=== PATIENT | female | born 2000 | race Caucasian/White ===

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

== ENCOUNTER 2020-06-11 10:42 | Outpatient (CLI) | payer MEDICAID, SELFPAY ==
[2020-06-13 21:31] LABS: SARS-CoV-2 RNA Undetected (Undetected); SARS-CoV-2 Specimen Source Nasopharynx
== END 2020-06-11 11:02 ==
PROVIDERS: PCP Pediatrics; Visit Provider Nurse Practitioner Pediatrics
DX: Z11.59 Encounter for screening for other viral diseases (principal)
CPT/HCPCS: U0003

== ENCOUNTER 2020-06-29 09:01 | Outpatient (CLI) | payer SELFPAY ==
[2020-06-29 10:36] LABS: ALT 36 U/L (14-59); AST 15 U/L (15-37); Albumin 3.9 g/dL (3.4-5.0); Alkaline Phosphatase 59 U/L (46-116); Bilirubin, Direct 0.11 mg/dL (0.00-0.20); Bilirubin, Total 0.6 mg/dL (0.2-1.0); Total Protein 7.7 g/dL (6.4-8.2)
[2020-07-02 09:09] LABS: Hepatitis B Surface Ab Positive (See Note)
[2020-07-02 09:17] LABS: Hepatitis B Surface Ag Negative (Negative)
[2020-07-02 10:03] LABS: HIV-1/2 Ag & Ab Screen Negative (Negative)
[2020-07-02 10:13] LABS: Hepatitis C Ab w Rflx HCV PCR Negative (Negative)
== END 2020-06-29 09:21 ==
PROVIDERS: PCP Pediatrics; Visit Provider Dentist General Practice
DX: Z11.4 Encounter for screening for human immunodeficiency virus [HIV] (principal); Z11.59 Encounter for screening for other viral diseases; Z01.84 Encounter for antibody response examination
CPT/HCPCS: 36415; 80076; 86706; 86803; 87340; 87389

== ENCOUNTER 2020-10-10 20:34 | Emergency (ER) | payer MEDICAID, SELFPAY ==
[2020-10-10 20:41] VITALS: BP 146/94; PULSE 107; RESP 20; TEMP 37.1; O2SAT 100
--- NOTE | 2020-10-10 20:45 | ED.GENADUL_ITS ---
Discharge Plan Disposition Patient Disposition: HOME Condition: Stable Discharge Details Clinical Impression: Constipation, Leukocytosis Primary Care Provider: Maria Alejandra Vergara V ED Provider: Silvia Mello Home Meds and New Rx's Prescriptions: No Action norethindrone-e.estradiol-iron [Loestrin Fe 1.5/30 (28-Day)] 1.5 mg-30 mcg (21)/75 mg (7) tablet 1 tab PO DAILY Qty: 84 RF: 4 dexmethylphenidate [Focalin XR] 25 mg capsule,ER biphasic 50-50 25 mg PO DAILY RF: 0 Discharge Instructions Instructions: Constipation (ED), Leukocytosis (ED) Additional Instructions: Take the MiraLAX as needed at home as discussed. Today the CT shows moderate amount of stool retention. There is no evidence for kidney stone or urinary tract infection. If your pain gets worse or you feel worse at all please return to the ED. Her white blood cell count was elevated also as discussed. Sometimes this can be a normal variant but also could be an indication of infection or inflammation. Follow up with primary care provider in 3-5 days. Return to ED sooner if any worsening or concerns. Increase oral fluids. Please take Tylenol or Ibuprofen with food every 4-6 hours as needed for pain and swelling. Medical Decision Making 20-year-old female presents to the ER with chief complaint of left flank pain. BM this morning and is gotten worse throughout the day radiates around her left lower quadrant. Associated with nausea, no vomiting no fever or chills. She does report she woke up this morning with aches. She denies any dysuria. No past surgical history, only past medical history is ADHD. She does take oral control pills. She did take ibuprofen this a.m. At this time labs show a white blood cell count of 18.53, absolute neutrophils, potassium 3.1, anion gap 8.9, BUN is 6, GFR greater than 60, urinalysis shows trace blood, no leukocytes no nitrites. Urine culture is not indicated at this time. Ordered potassium 40 mEq p.o., patient did get 30 mg of Toradol IV. CT abdomen pelvis without contrast: IMPRESSION: 1. The superior aspect of the liver, stomach, and spleen is incompletely imaged on this examination. Abnormalities in these regions cannot be excluded. 2. No renal or ureteral calculi identified. Evaluation for pyelonephritis is limited secondary to the lack of IV contrast. 3. Moderate amount of stool in the colon which can be seen with constipation. 4. Rectal wall prominence which should be correlated with any concern for proctitis. Other findings/details as above. Patient is still complaining of some left lower lumbar pain she describes it as waxing and waning with sharp stabbing pains. After discussing the CT results she does state that she has had problems with constipation her entire life. She does take MiraLAX at home, she has not taken any recently. She states that she did have a small bowel movement today. She denies any sore throat or any upper respiratory type symptoms. She denies any vaginal discharge or itching. At this time I am not sure what is causing her elevated white blood cell count. She has no signs or symptoms of infectious etiology. Discussed different modes for constipation including enemas, mag citrate. Patient opted to take the MiraLAX at home. I did discuss strict return instructions, patient verbalized understanding. We will place patient on care management list to follow-up with PCP for repeat CBC in the next couple days if possible. Differential diagnosis includes but not limited to kidney stone, pyelonephritis, UTI, diverticulitis, bowel obstruction, lumbago, less likely differential is porphyria HPI General Mode of arrival: ambulatory . Date/Time Provider Initiated Documentation: 10/10/20 20:34 . Limitations to Documentation: no limitations . Information obtained by: patient . HPI Narrative: 20-year-old female presents to the ER with chief complaint of left flank pain. BM this morning and is gotten worse throughout the day radiates around her left lower quadrant. Associated with nausea, no vomiting no fever or chills. She does report she woke up this morning with aches. She denies any dysuria. No past surgical history, only past medical history is ADHD. She does take oral control pills. She did take ibuprofen this a.m. Related Data Home Medications Medication Instructions Recorded Confirmed norethindrone 1.5 mg-ethinyl 1 tab PO DAILY #84 tab 08/31/20 10/10/20 estradiol 30 mcg(21)/iron 75 mg(7) tablet dexmethylphenidate [Focalin XR] 25 mg PO DAILY 10/10/20 10/10/20 Previous Rx's Medication Instructions Recorded norethindrone 1.5 mg-ethinyl 1 tab PO DAILY #84 tab 08/31/20 estradiol 30 mcg(21)/iron 75 mg(7) tablet Allergies Allergy/AdvReac Type Severity Reaction Status Date / Time amoxicillin Allergy Severe hives Verified 10/10/20 20:47 ondansetron [From Zofran] Allergy Intermediate Swelling/Ed Unverified 10/10/20 21:18 johnathon Review of Systems Narrative: Constitutional: Negative for weight loss, alert and oriented, well groomed, normal body habitus, appears comfortable. HEENT: Denies trauma, headaches, blurry vision, nasal discharge, sore throat, trouble swallowing. Chest: Denies chest pain, palpitations, irregular rhythm, hypertension. Respiratory: Denies Shortness of breath, cough, hemoptysis. GI: Denies vomiting, diarrhea, constipation. Positive nausea left lower quadrant abdominal pain. : Denies dysuria, hematuria, rectal bleeding. Positive left flank pain. Neuro: Denies dizziness, blurry vision, weakness, syncope, headache or facial numbness. Hematologic: Denies easy bruising, intolerance to heat or cold, hair loss. [facility] Social History Smoking/Tobacco Use Status: Never Smoking risk assessment performed?: Yes Alcohol Intake: current Alcohol Intake frequency: holidays/special occasions only Drug use: Never Substance use type: does not use Do you feel safe at home: Yes Exam Narrative Exam Narrative: Constitutional: Alert and oriented x3. Appears stated age. Normal body habitus. Head: Normocephalic, no trauma. Eyes: Pupils PERRLA, Red reflex noted, EOM's intact. Eyelids symmetrical without lesions, discharge, or swelling. ENT: Bilateral TM's WNL, External ear normal to inspection, no mastoid TTP, s welling, or erythema, Nasal turbinates WNL, no nasal discharge. Normal dentition, Posterior pharynx WNL, no exudate. Chest: RRR, Normal S1, S2, distal pulses intact. Resp: Lungs clear to auscultation bilaterally, no wheezes, rales, or rhonchi. Abdomen: Soft, nondistended. Genitourinary: Left CVA tenderness with palpation. Musculoskeletal: Normal gait, 5/5 strength to all four extremities. Skin: No suspicious rashes or lesions. Capillary refill less than 2 sec. Neurologic: Cranial nerves II-XII intact. Alert and oriented x 3. DTR's intact. Hematologic/Lymphatic: No ecchymosis, no lymphadenopathy.
[2020-10-10 20:47] LABS: Bilirubin Negative (Negative); Blood Trace-intact (Negative); Clarity Clear (Clear); Glucose Negative (Negative); Ketones Negative (Negative); Leukocyte Esterase Negative (Negative); Nitrite Negative (Negative); Specific Gravity 1.015 (1.005-1.025); Urobilinogen 0.2 EU/dL (Up TO 0.2)
[2020-10-10 20:54] LABS: RBC 0-2 HPF (0-2)
[2020-10-10 20:55] LABS: Bacteria Negative HPF (Negative); C & S Indicated? No; Casts Negative LPF (Negative); Crystals Negative HPF (Negative); Epithelial Cells Few HPF (Negative); Mucus Negative (Negative)
[2020-10-10] MEDS: Ketorolac 30 MG/ML VIAL IVP (21:08)
[2020-10-10] MEDS: Normal Saline 1,000 ML 1000 ML IV (21:09)
[2020-10-10 21:17] LABS: Abs Immature Grans 0.09 10^3/uL (0.0-0.06); Absolute Eosinophil Count 0.11 10^3/uL (0.0-0.7); Absolute Lymphocyte Count 2.96 10^3/uL (1.2-3.4); Absolute Monocyte Count 0.89 10^3/uL (0.1-0.8); Basophils % 0.3; Eosinophils % 0.6; HCT 39.7 % (36.0-46.0); HGB 13.2 g/dL (11.2-15.7); Immature Grans % 0.5; MCH 30.1 pg (27.0-33.0); MCHC 33.2 % (32.0-36.0); MCV 90.4 fL (80-95); MPV 9.8 fL (8.0-11.0); Monocytes % 4.8; Neutrophils % 77.8; Nucleated RBC 0 %; Platelet Count 278 10^3/uL (130-400); RBC 4.39 10^6/uL (3.93-5.22); RDW 12.2 % (11.7-14.6); RDW-SD 40.3 fL; WBC 18.53 10^3/uL (4.4-10.8)
--- NOTE | 2020-10-10 21:17 | DI.CT_ITS ---
EXAM: CT RENAL COLIC WO CLINICAL HISTORY: Left flank pain, nausea. TECHNIQUE: Imaging Protocol: Axial computed tomography images with coronal and sagittal reformatted images were created and reviewed. COMPARISON: No exams were available for comparison FINDINGS: ABDOMEN: Lung Bases: Normal where visualized. Liver: The visualized liver is unremarkable. No measurable mass. Gallbladder and biliary tract: No radiodense calculus or biliary ductal dilation. Pancreas: Normal density, no abnormal calcifications or inflammatory process. Spleen: The visualized portions of the spleen are unremarkable. Kidneys: Normal size, contour and axis.No radiodense stones or obstructive uropathy. No masses seen. Adrenal glands: No mass is seen. Lymph nodes: Within normal limits. Abdominal Aorta: Abdominal portion non-dilated. PELVIS: Bladder:Symmetric distention, no gross wall thickening. Bowel: No obstruction or bowel wall thickening. Appendix is unremarkable. There is a moderate amount of stool in the colon. Peritoneal cavity: No ascites, collection or mesenteric inflammatory response Reproductive organs: Within normal limits. Bones: Within normal limits. Soft Tissues: Within normal limits. IMPRESSION: No evidence of nephrolithiasis or hydronephrosis. No acute abdominal or pelvic process. RADIATION DOSE DELIVERED: 652.22mGy.cm Total DLP DATA REPOSITORY: All CT scans at this facility are submitted to the National Radiology Data Registry (NRDR) Dose Index Registry (DIR) with the [employer] (A[employer]). RADIATION OPTIMIZATION: All CT scans at this facility use at least one of these dose optimization te chniques: automated exposure control; mA and/or kV adjustment per patient size (includes targeted exa ms where dose is matched to clinical indication); or iterative reconstruction.
[2020-10-10 21:23] LABS: Absolute Basophil Count 0.06 10^3/uL (0.0-0.2); Absolute Neutrophil Count 14.42 10^3/uL (1.2-6.7)
[2020-10-10 21:24] VITALS: BP 136/89; PULSE 92; RESP 16; O2SAT 100
[2020-10-10 21:31] LABS: ALT 16 U/L (14-59); AST 13 U/L (15-37); Albumin 4.1 g/dL (3.4-5.0); Alkaline Phosphatase 51 U/L (46-116); Anion Gap 8.9 mmol/L (3-11); BUN 6 mg/dL (7-18); Bilirubin, Total 0.5 mg/dL (0.2-1.0); CO2 26.1 mmol/L (21.0-32.0); CREATININE 0.77 mg/dL (0.55-1.02); Calcium 8.9 mg/dL (8.5-10.1); Chloride 103 mmol/L (98-107); Glucose 91 mg/dL (74-106); Potassium 3.1 mmol/L (3.5-5.1); Sodium 138 mmol/L (136-145); Total Protein 7.8 g/dL (6.4-8.2)
--- NOTE | 2020-10-10 22:03 | DI.VRAD_ITS ---
PROCEDURE INFORMATION: Exam: CT Abdomen And Pelvis Without Contrast Exam date and time: 10/10/2020 9:18 PM Age: 20 years old Clinical indication: Abdominal pain; Flank; Left TECHNIQUE: Imaging protocol: Computed tomography of the abdomen and pelvis without contrast. Radiation optimization: All CT scans at this facility use at least one of these dose optimization techniques: automated exposure control; mA and/or kV adjustment per patient size (includes targeted exams where dose is matched to clinical indication); or iterative reconstruction. COMPARISON: No relevant prior studies available. FINDINGS: Limitations: The superior aspect of the liver, stomach, and spleen is incompletely imaged on this examination. Liver: The imaged portions of the liver are homogeneous. Gallbladder and bile ducts: Contracted gallbladder. No calcified gallstones identified. Pancreas: Pancreas grossly homogeneous. Spleen: The imaged portions of the spleen are homogeneous. Adrenal glands: Normal appearance to the adrenal glands. Kidneys and ureters: No hydronephrosis. No renal or ureteral calculi seen. Stomach and bowel: Heterogeneous contents to the stomach, favored to be related to ingested products. No bowel obstruction. Moderate amount of stool in the colon which can be seen with constipation. There is rectal wall prominence which should be correlated with any concern for proctitis. Appendix: Normal appendix. Intraperitoneal space: No free air. Vasculature: No abdominal aortic aneurysm. Lymph nodes: No pathologic lymph node enlargement. Urinary bladder: Urinary bladder within normal limits. Reproductive: The uterus is identified. No large adnexal masses seen. Bones/joints: Bony structures are age-appropriate. Soft tissues: Unremarkable. IMPRESSION: 1. The superior aspect of the liver, stomach, and spleen is incompletely imaged on this examination. Abnormalities in these regions cannot be excluded. 2. No renal or ureteral calculi identified. Evaluation for pyelonephritis is limited secondary to the lack of IV contrast. 3. Moderate amount of stool in the colon which can be seen with constipation. 4. Rectal wall prominence which should be correlated with any concern for proctitis. Other findings/details as above. Dictated and Authenticated by: Linn Garcia MD. Ordering:MASON Vega MD
[2020-10-10] MEDS: Potassium Chloride 20 MEQ TABCR 40 MEQ PO (22:34)
[2020-10-10 23:05] VITALS: BP 113/70; PULSE 76; RESP 16; O2SAT 99
== END 2020-10-10 23:02 | disposition home or self-care (01) ==
PROVIDERS: Emergency Provider Registered Nurse Emergency; PCP Pediatrics
DX: D72.829 Elevated white blood cell count, unspecified (principal); K59.00 Constipation, unspecified; E87.6 Hypokalemia
CPT/HCPCS: 36415; 80053; 81025; 96361; 96374; 96375; 99284; 74176; 81003; 81015; 85025; J1885

== ENCOUNTER 2020-11-12 15:36 | Outpatient (CLI) | payer MEDICAID, SELFPAY ==
--- NOTE | 2020-11-12 15:00 | DI.RAD_ITS ---
EXAM: XR KNEE LT 4V AP,LAT,ISAIAH,PAT CLINICAL HISTORY: L knee pain. TECHNIQUE: 2D digital imaging was performed. COMPARISON: No exams were available for comparison FINDINGS: There is no evidence of fracture nor dislocation. There appears to be a small amount of increased rosales int fluid. No joint space narrowing. No degenerative changes. No osteochondral defects. Bone dens ity normal. IMPRESSION: No fracture evident. DATA REPOSITORY: RADIATION DOSE DELIVERED:
== END 2020-11-12 15:56 ==
PROVIDERS: PCP Pediatrics; Referring Provider Pediatrics; Visit Provider Physician Assistant
DX: M25.562 Pain in left knee (principal)
CPT/HCPCS: 73564

== ENCOUNTER 2020-12-07 01:55 | Outpatient (CLI) | payer MEDICAID, SELFPAY ==
[2020-12-09 14:08] LABS: COVID-19 RT-PCR UVMMC Result Negative (Negative)
== END 2020-12-07 01:56 | disposition home or self-care (01) ==
LOC: LBO 01:55
PROVIDERS: PCP Pediatrics; Visit Provider Student in an Organized Health Care Education/Training Program
DX: Z20.822 Contact with and (suspected) exposure to COVID-19 (principal); Z01.818 Encounter for other preprocedural examination
CPT/HCPCS: U0003

== ENCOUNTER 2020-12-12 07:26 | Day surgery (SDC) | payer MEDICAID, SELFPAY ==
[2020-12-12] VITALS (11 sets, daily range): BP systolic 91–121; BP diastolic 38–84; PULSE 60–86; RESP 13–18; TEMP 36–36.9; O2SAT 97–100
[2020-12-12] MEDS: Lactated Ringers 1,000 ML 80 ML IV (08:05)
--- NOTE | 2020-12-12 09:49 | PDOC.DSDIS_ITS ---
Documented by User: MARIAN Herrera 12/12/20 09:55 Discharge Plan Disposition Patient Disposition: HOME Condition: Good Discharge Details Reason For Visit: Left knee arthroscopy Attending Provider: Srinivas Kaba Primary Care Provider: Maria Alejandra Vergara V Home Meds and New Rx's Prescriptions: New acetaminophen 500 mg capsule 500 mg PO Q4H PRN (Reason: pain) Qty: 30 RF: 0 hydrocodone-acetaminophen 5-325 mg tablet 1 tab PO Q6H PRN (Reason: pain) Qty: 6 RF: 0 ibuprofen 600 mg tablet 600 mg PO TID PRN (Reason: pain) Qty: 30 RF: 0 Continued norethindrone-e.estradiol-iron [Loestrin Fe 1.5/30 (28-Day)] 1.5 mg-30 mcg (21)/75 mg (7) tablet 1 tab PO DAILY Qty: 84 RF: 4 dexmethylphenidate 30 mg capsule,ER biphasic 50-50 30 mg PO DAILY MDD 30mg Qty: 30 RF: 0 albuterol sulfate [ProAir HFA] 90 mcg/actuation HFA aerosol inhaler 2 puff IH QID PRN (Reason: shortness of breath or wheezing) Qty: 8.5 RF: 2 (DME) Aerochamber MV Spacer See Rx Instructions .ROUTE .MEDSUPPLY Qty: 1 RF: 0 epinephrine [EpiPen 2-Triston] 0.3 MG/0.3 ML auto-injector 0.3 mg IM ONCE Qty: 2 RF: 1 (DME) Space Chamber Plus 1 EACH spacer 1 ea Miscellaneous Q4H PRN Qty: 1 RF: 0 Discharge Instructions Stand Alone Forms: [facility] Knee Arthroscopy Referrals: Srinivas Kaba MD [ [facility] STAFF PHYSICIAN] - Equipment/Supplies: Partial Weight Bearing Crutches Activity:: Activity as Tolerated Remove Dressings/Wound Care:: 72 hours Shower/Bathe:: 72 hours Diet:: As Tolerated Discharge Orders Discharge Orders: Discharge Order (Routine); Ordered 12/12/20 Ordered By: Srinivas Kaba DS: Diagnosis Discharge Diagnosis (1) Plica syndrome, left knee: Status: Acute Documented by User: Srinivas Kaba MD 12/12/20 11:15 Discharge Plan Disposition Patient Disposition: HOME Condition: Good Discharge Details Reason For Visit: Left knee arthroscopy Attending Provider: Srinivas Kaba Primary Care Provider: Maria Alejandra Vergara V Home Meds and New Rx's Prescriptions: New acetaminophen 500 mg capsule 500 mg PO Q4H PRN (Reason: pain) Qty: 30 RF: 0 hydrocodone-acetaminophen 5-325 mg tablet 1 tab PO Q6H PRN (Reason: pain) Qty: 6 RF: 0 ibuprofen 600 mg tablet 600 mg PO TID PRN (Reason: pain) Qty: 30 RF: 0 Continued norethindrone-e.estradiol-iron [Loestrin Fe 1.5/30 (28-Day)] 1.5 mg-30 mcg (21)/75 mg (7) tablet 1 tab PO DAILY Qty: 84 RF: 4 dexmethylphenidate 30 mg capsule,ER biphasic 50-50 30 mg PO DAILY MDD 30mg Qty: 30 RF: 0 albuterol sulfate [ProAir HFA] 90 mcg/actuation HFA aerosol inhaler 2 puff IH QID PRN (Reason: shortness of breath or wheezing) Qty: 8.5 RF: 2 (DME) Aerochamber MV Spacer See Rx Instructions .ROUTE .MEDSUPPLY Qty: 1 RF: 0 epinephrine [EpiPen 2-Triston] 0.3 MG/0.3 ML auto-injector 0.3 mg IM ONCE Qty: 2 RF: 1 (DME) Space Chamber Plus 1 EACH spacer 1 ea Miscellaneous Q4H PRN Qty: 1 RF: 0 Discharge Instructions Stand Alone Forms: [facility] Knee Arthroscopy Referrals: Srinivas Kaba MD [ [facility] STAFF PHYSICIAN] - Equipment/Supplies: Partial Weight Bearing Crutches Activity:: Activity as Tolerated Remove Dressings/Wound Care:: 72 hours Shower/Bathe:: 72 hours Diet:: As Tolerated Discharge Orders Discharge Orders: Discharge Order (Routine); Ordered 12/12/20 Ordered By: Srinivas Kaba
[2020-12-12] MEDS: ceFAZolin 2 GM/50 ML BAG IVPB (10:14)
[2020-12-12] MEDS: Bupivacaine 0.5% Pres-Free 30 ML VIAL (10:37)
--- NOTE | 2020-12-12 11:10 | ROE_ITS ---
Date of service: 12/12/20 Time of Service: 11:10 Operative Note Operative Note DATE OF PROCEDURE: 12/12/20 PRE-OP DIAGNOSIS: Left Knee Plica Syndrome POST-OP DIAGNOSIS: same PROCEDURE: Left Knee Arthroscopic Plica Excision SURGEON: Srinivas Kaba ANESTHESIA TYPE: General LMA/ETT Refer to Anesthesia Record ESTIMATED BLOOD LOSS: 0 PATHOLOGY: none sent COMPLICATIONS: None Patient was transported to: PACU Patient's condition: stable Indications: I have seen Tran in clinic for symptoms of a medial plica. This was confirmed based on MRI and exam findings. Nonoperative measures were exhausted but disability and pain persisted. I discussed knee arthroscopy with plica excision with the patient. I reviewed the risks of the procedure to incl ude, but not limited to, bleeding, infection, pain, stiffness, damage to nerves or vessels, recurrence, blood clot. Despite these risks, the patient elected to proceed. Findings: A diagnostic arthroscopy was performed with the following findings: Suprapatellar Pouch: No significant inflammation, No loose bodies Medial Compartment: Tight plica abrading the medial femur in flexion, no meniscal tear, Intact meniscal root, No significant chondromalacia or signs of arthritis, No loose bodies Notch: ACL and PCL were intact Lateral Compartment: No meniscal tear, Intact meniscal root, No significant chondromalacia or signs of arthritis, No loose bodies Patellofemoral Compartment: No significant chondromalacia, No apparent patellar maltracking Procedure Description: Tran was greeted in the preoperative holding area where the correct side was identified and marked. The consent was reviewed with the patient and signed. The history and physical was updated. All questions were answered. Tran was taken back to the operating room. The patient was placed into the supine position on the operating room table. All bony prominences were well padded. Prophylactic antibiotics in the form of Cefazolin were administered. The left leg was then prepped with Chloraprep and draped in a standard fashion with stockinette and extremity drape. A timeout to confirm correct identity, side and site, procedure, allergies, anesthesia, and medical concerns was performed. The leg was placed into a pneumatic leg bolivar, [id number]. A standard lateral portal was made at the lateral border of the patella tendon in line with the inferior pole of the patella, soft spot. The skin and deep tissue was incised sharply and the blunt trochar was inserted atraumatically. A diagnostic arthroscopy was performed and the findings are listed above. The suprapatellar pouch had no significant inflammatory change. The patellofemoral articulation showed no articular damage as well as good tracking. The lateral gutter had no loose bodies and the medial gutter had no loose bodies. There was a tight plica of the medial knee from the medial knee toward the fat pad. This was think and taut, abrading the medial femur through flexion. Then, the knee was brought into some valgus stress in extension to open the medial compartment. A medial portal was made, localized by a spinal needle. The portal was created with an #11 blade through skin and capsule under direct visualization avoiding any meniscal injury. A probe was then inserted into the medial compartment. The medial compartment was fully inspected. The chondral surface of the tibia showed no significant chondromalacia and the surface of the femur showed no significant chondromalacia. The medial meniscus had no meniscal tear. The notch was then inspected which showed an intact ACL and an intact PCL. The leg was then brought into a figure of 4 position. The lateral compartment was fully inspected with the arthroscope and a probe. The chondral surface of the lateral femur showed no significant chondromalacia. The chondral surface of the lateral tibia showed no significant chondromalacia. The lateral meniscus had no meniscal tear and just a little fraying at the root which did not represent any tear. The plica was then excised with both electrocautery and a shaver. This was first done in extension and then the knee was brought into some flexion to evaluate the plica. Any remnant was removed such that there was no band of tissue interacting with the medial femur. The arthroscope was brought back into the suprapatellar pouch and the leg was in full extension. The knee was thoroughly irrigated with the arthroscopic fluid on high flow and pressure. Inflow was stopped and excess fluid was removed. The wounds were closed with 4-0 Nylon. The wounds and the knee was injected with 0.25% Bupivacaine. They were dressed with Xeroform, 4x4 gauze, ABD pad, Kerlix and an CONNOR wrap. A cryo-cuff was applied. The patient tolerated the procedure well and was returned to the Same Day Surgery area in a stable condition suffering no known complication.
[2020-12-12] MEDS: fentaNYL 100 MCG/2 ML VIAL IVP (11:44)
== END 2020-12-12 07:27 | disposition home or self-care (01) ==
PROVIDERS: PCP Pediatrics; Visit Provider Student in an Organized Health Care Education/Training Program
PROC: (CPT 29870; principal; 2020-12-12 10:00)
DX: M67.52 Plica syndrome, left knee (principal); J45.909 Unspecified asthma, uncomplicated
CPT/HCPCS: 29875; 81025; J0690; J1100; J1885; J2001; J2405; J3010

== ENCOUNTER 2021-01-24 16:08 | Emergency (ER) | payer MEDICAID, SELFPAY ==
--- NOTE | 2021-01-24 16:39 | NUR.NOTE ---
Nursing Note: This account entered in error by Access. Emily Marcial
== END 2021-01-24 16:14 | disposition other institution (70) ==
LOC: ER 16:18
DX: Z53.21 Procedure and treatment not carried out due to patient leaving prior to being seen by health care provider (principal)

== ENCOUNTER 2021-01-24 16:14 | Emergency (ER) | payer MEDICAID, SELFPAY ==
[2021-01-24 16:15] VITALS: BP 137/79; PULSE 84; RESP 14; TEMP 36.4; O2SAT 99
[2021-01-24] MEDS: Normal Saline Flush 10 ML SYR IVP (16:15)
[2021-01-24] MEDS: Normal Saline 1,000 ML 1000 ML IV (16:45)
[2021-01-24] MEDS: Ketorolac 30 MG/ML VIAL IVP (16:50)
[2021-01-24] MEDS: Metoclopramide 10 MG/2 ML VIAL IVP (16:55)
[2021-01-24 17:05] LABS: Bilirubin Negative (Negative); Blood Trace-intact (Negative); Clarity Clear (Clear); Glucose Negative (Negative); Ketones Negative (Negative); Leukocyte Esterase Negative (Negative); Nitrite Negative (Negative); Specific Gravity >= 1.030 (1.005-1.025); Urobilinogen 0.2 EU/dL (Up TO 0.2)
--- NOTE | 2021-01-24 17:23 | W.ED.GENAD ---
Discharge Plan Disposition Patient Disposition: HOME Condition: Stable Discharge Details Clinical Impression: Cephalgia Primary Care Provider: Maria Alejandra Vergara V ED Provider: Juwan Thomas Home Meds and New Rx's Prescriptions: Continued norethindrone-e.estradiol-iron [Loestrin Fe 1.5/30 (28-Day)] 1.5 mg-30 mcg (21)/75 mg (7) tablet 1 tab PO DAILY Qty: 84 RF: 4 dexmethylphenidate 30 mg capsule,ER biphasic 50-50 30 mg PO DAILY MDD 30mg Qty: 30 RF: 0 albuterol sulfate [ProAir HFA] 90 mcg/actuation HFA aerosol inhaler 2 puff IH QID PRN (Reason: shortness of breath or wheezing) Qty: 8.5 RF: 2 (DME) Aerochamber MV Spacer See Rx Instructions .ROUTE .MEDSUPPLY Qty: 1 RF: 0 diazepam 5 mg tablet 5 mg PO TID PRN (Reason: muscle spasm, pain) Qty: 12 RF: 0 epinephrine [EpiPen 2-[place]riston] 0.3 MG/0.3 ML auto-injector 0.3 mg IM ONCE Qty: 2 RF: 1 (DME) Space Chamber Plus 1 EACH spacer 1 ea Miscellaneous Q4H PRN Qty: 1 RF: 0 cyclobenzaprine 5 mg tablet 5 mg PO TID PRN (Reason: muscle spasm) Qty: 10 RF: 0 ibuprofen 600 mg tablet 600 mg PO TID PRN (Reason: pain) Qty: 30 RF: 0 acetaminophen 500 mg capsule 1,000 mg PO Q8H PRN (Reason: pain) Qty: 60 RF: 0 hydrocodone-acetaminophen 5-325 mg tablet 1 tab PO Q6H PRN (Reason: pain) Qty: 6 RF: 0 Discharge Instructions Instructions: General Headache (ED) Additional Instructions: At this time you are neurologically intact, have responded nicely to the IV medications, and are requesting discharge home. Please watch for new or worsening symptoms and return to the ER for any concerns. Otherwise I would like you to contact your primary care provider tomorrow to discuss your frequent headaches that you have been getting for over 1 year now. Medical Decision Making 21-year-old female with past medical history of anxiety, asthma, IBS, frequent headaches, presents with what she describes as a migraine that began yesterday while at work in the morning, global, gradual, worse on the left side. Very typical for her. Family history both her aunt and her mother with very similar symptoms. Clinically she appears well, nontoxic and on my initial presentation she was using her cell phone without difficulty. She is neurologically intact, afebrile, and denies recent trauma. Denies any neck pain. Extremely low suspicion for intracranial hemorrhage, meningitis, etc. Given her frequency of urination will obtain fingerstick glucose and urinalysis. We will also obtain . If unremarkable will give IV fluid, Reglan, Benadryl and Toradol. Fingerstick glucose 79. negative. Urinalysis with trace blood, 3-5 red cells, 0-2 white cells negative bacteria, negative leuk esterase, negative nitrate. Patient given p.o. orange juice that she was able to take without difficulty. She was also medicated. Upon reevaluation she reports that her severe head pain has been reduced by over half, denies any nausea, tolerated the orange juice, and is requesting discharge. She appears well, nontoxic and remains neurologically intact. She was given standard return precautions. Otherwise she will contact her primary care provider tomorrow to discuss her ongoing headaches. Medical Records Medical records reviewed: Yes I reviewed the patient's medical records. HPI General Mode of arrival: ambulatory. Date/Time Provider Initiated Documentation: 01/24/21 16:18. Limitations to Documentation: no limitations. Information obtained by: patient. HPI Narrative: This is a 21-year-old female, past medical history that includes anxiety, asthma, IBS, frequent headaches, presenting to the ER today reporting a headache that began yesterday. She states yesterday morning while at work she began to have a mild global headache slightly worse on the left, this progressed in severity throughout the day and then began to cause her nausea. She states that she has been having similar headaches for over 1 year but has never brought this up to her primary care provider. Typically takes [id number] Excedrin which helps some and the headaches typically resolve in a day or 2. She reports a strong family history of both her mother and aunt with similar. Patient denies recent illness or trauma. She denies fever, neck pain, visual changes, chest pain, shortness of breath, vomiting, numbness, tingling, weakness. She later questions if she could be dehydrated but reports that she has had no change in oral intake. No vomiting or diarrhea. Patient denies any dysuria or hematuria reports may be slight increase in overall urinary frequency. Related Data Home Medications Medication Instructions Recorded Confirmed epinephrine [EpiPen 2-Triston] 0.3 mg IM ONCE #2 kit 06/06/15 01/24/21 Space Chamber Plus #1 11/26/17 05/08/20 albuterol sulfate 90 mcg/actuation 2 puff IH QID PRN #8.5 gm 12/26/19 12/12/20 aerosol inhaler inhalational spacing device #1 each 12/26/19 05/08/20 norethindrone 1.5 mg-ethinyl 1 tab PO DAILY #84 tab 08/31/20 01/24/21 estradiol 30 mcg(21)/iron 75 mg(7) tablet dexmethylphenidate 30 mg 30 mg PO DAILY #30 cap MDD 30mg 11/08/20 01/24/21 capsule,extended release [id number] hydrocodone-acetaminophen 1 tab PO Q6H PRN #6 tab 12/12/20 acetaminophen 500 mg capsule 1,000 mg PO Q8H PRN #60 cap 12/18/20 cyclobenzaprine 5 mg tablet 5 mg PO TID PRN #10 tab 12/18/20 ibuprofen 600 mg tablet 600 mg PO TID PRN #30 tab 12/18/20 01/24/21 diazepam 5 mg tablet 5 mg PO TID PRN #12 tab 12/20/20 12/20/20 Previous Rx's Medication Instructions Recorded Space Chamber Plus #1 11/26/17 albuterol sulfate 90 mcg/actuation 2 puff IH QID PRN #8.5 gm 12/26/19 aerosol inhaler inhalational spacing device #1 each 12/26/19 norethindrone 1.5 mg-ethinyl 1 tab PO DAILY #84 tab 08/31/20 estradiol 30 mcg(21)/iron 75 mg(7) tablet dexmethylphenidate 30 mg 30 mg PO DAILY #30 cap MDD 30mg 11/08/20 capsule,extended release [id number] hydrocodone-acetaminophen 1 tab PO Q6H PRN #6 tab 12/12/20 acetaminophen 500 mg capsule 1,000 mg PO Q8H PRN #60 cap 12/18/20 cyclobenzaprine 5 mg tablet 5 mg PO TID PRN #10 tab 12/18/20 ibuprofen 600 mg tablet 600 mg PO TID PRN #30 tab 12/18/20 diazepam 5 mg tablet 5 mg PO TID PRN #12 tab 12/20/20 Allergies Allergy/AdvReac Type Severity Reaction Status Date / Time ondansetron HCl Allergy Severe Swelling/Edema, Verified 01/24/21 16:23 [From Zofran (as Hives hydrochloride)] almond Allergy Intermediate Hives Verified 01/24/21 16:23 amoxicillin Allergy Intermediate HIVES Verified 01/24/21 16:23 ondansetron [From Zofran] Allergy Intermediate Swelling/Ed Unverified 01/24/21 16:23 johnathon General Stated Complaint: Headache MISHEL: 3 Review of Systems Constitutional Constitutional: Denies fever(s), Reports headache(s) and Denies weakness Eyes Eyes: Denies change in vision ENT Ears, Nose, Mouth, and Throat: Reports headache(s) and Denies neck pain Cardiovascular Cardiovascular: Denies chest pain and Denies dyspnea Respiratory Respiratory: Denies dyspnea Gastrointestinal Gastrointestinal: Denies abdominal pain, Reports nausea and Denies vomiting Genitourinary Genitourinary: Denies dysuria Musculoskeletal Musculoskeletal: Denies neck pain, Denies numbness and Denies tingling Integumentary/Breasts Skin/Breast: Denies rash Neurologic Neurologic: Reports headache(s), Denies numbness, Denies tingling and Denies weakness Psychiatric Psychiatric: Reports anxiety [facility] Medical History Allergy to amoxicillin [place] allergy Anxiety Asthma Attention deficit West's palsy 2018 Closed left arm fracture AGE 2 Depo-Provera contraceptive status (04/14/16) is content with current contraceptive method. has not been taking vit D 3 suppliment. does get plenty of calcium in her diet upt today - neg Depot contraception (01/21/16) Left medial knee pain suspect tendonitis - will tx as same. she will fu prn Left snapping hip (08/03/17) Surgical History Tonsillectomy 03/04 [place] teeth removed 2015, all 4.Impacted Family History Mother Diabetes Mental disorder depression Father Essential hypertension Mental disorder anxiety Other Diabetes MGF Personal history of malignant neoplasm maternal- skin, melanoma-MGM Heart disease MGF, PGF Hyperlipidemia MGM Myocardial infarction both sides Asthma paternal cousin Social History Smoking/Tobacco Use Status: Never Smoking risk assessment performed?: Yes Alcohol Intake: never Drug use: Never Substance use type: does not use Adopted: No Foster care: No Household members: family Housing: house current occupation: Works at after school program at [employer] Pets and animals: Yes Pets and animals: cat(s) and dog(s) Sexually active: Yes (Has been before but not recently) Current gender identity: female Seatbelt use: always Helmet use: Yes Helmet use: always Working smoke detector in home: Yes Fire extinguisher in home: Yes Carbon monox detector in home: Yes Firearms in home: Yes Firearms unloaded and locked: Yes Do you feel safe at home: Yes Do you feel safe in your relationship?: Yes Female Reproductive History Menstrual control method: implanted (nexplanon lot#[id number] exp 03/2025) Exam Const General: cooperative, healthy appearing, comfortable and no acute distress Orientation: alert, awake and oriented x3 HENMT Head: normal to inspection, normocephalic and atraumatic Ears: external ears normal, TM's normal bilaterally and EAC's normal Face and sinus: normal facial exam Mouth: moist mucous membranes Throat: posterior oropharynx normal Eyes General: appearance normal, both eyes and all related structures Alignment and Position: alignment normal Periorbital: periorbital findings normal Eyelids: eyelids normal Conjunctivae: conjunctivae normal Sclera: sclerae normal Cornea: corneas normal Pupils: PERRL EOM: EOM intact bilaterally Direct ophthalmoscopy: normal light reflex Neck Neck: normal visual inspection, full ROM, no meningeal signs, trachea midline, supple and nontender Resp Effort & Inspection: normal respiratory effort and able to speak in complete sentences Auscultation: clear to auscultation bilaterally Cardio Rate: regular rate Rhythm: regular rhythm Back/Spine/Pelvis Back: No back tenderness Skin General skin exam: no rashes or lesions noted Neuro General: patient alert, patient awake, patient oriented x3, moves all extremities and no focal motor deficits Cranial Nerves: CN's II-XI intact bilaterally Cognition: normal cognition Speech: speech normal Gait: normal gait Motor: muscle tone normal throughout, strength 5/5 throughout, no movement abnormalities noted and no fasciculations Sensory Exam: no sensory deficits noted Coordination: Does not sway with eyes open Extrem General: normal to inspection and full ROM Psych Appearance: grossly normal Mental Status: mental status grossly normal Course Vital Signs Vital signs: Vital Signs Temperature 36.4 C L 01/24/21 16:15 Pulse 84 01/24/21 16:15 Respiratory Rate 14 01/24/21 16:15 Blood Pressure 137/79 01/24/21 16:15 Pulse Oximetry 99 01/24/21 16:15 Temperature 36.4 C L 01/24/21 16:15 Temperature Source Skin 01/24/21 16:15 Pulse 84 01/24/21 16:15 Respiratory Rate 14 01/24/21 16:15 Respiratory Effort 01/24/21 16:20 Blood Pressure 137/79 01/24/21 16:15 Blood Pressure Position Supine 01/24/21 16:15 Pulse Oximetry 99 01/24/21 16:15 Oxygen Delivery Method Room Air 01/24/21 16:15 Oxygen Flow Rate 0 01/24/21 16:15 Pain Level 10 01/24/21 16:20 Lab/Test Results Lab/Test Results: Laboratory Tests Range/Units 01/24/21 16:40 Urine Color (Yellow) Yellow Urine Clarity (Clear) Clear Urine pH (5-8) 6.0 Ur Specific [place] (1.005-1.025) >= 1.030 H Urine Protein (Negative) mg/dL Negative Urine Ketones (Negative) mg/dL Negative Urine Blood (Negative) Trace-intact H Urine Nitrite (Negative) Negative Urine Bilirubin (Negative) Negative Urine Urobilinogen (Up TO 0.2) EU/dL 0.2 Ur Leukocyte Esterase (Negative) Negative Urine Glucose (Negative) mg/dL Negative POC- Test(urine) Negative
[2021-01-24 17:24] LABS: Bacteria Negative HPF (Negative); C & S Indicated? No; Casts Negative LPF (Negative); Crystals Negative HPF (Negative); Epithelial Cells Negative HPF (Negative); Mucus Negative (Negative); Other Cells Negative (Negative); WBC 0-2 HPF (0-5)
[2021-01-24] MEDS: diphenhydrAMINE 50 MG/ML VIAL 25 MG IVP (17:28)
[2021-01-24 17:35] VITALS: BP 124/73; PULSE 68; RESP 14; TEMP 37.1; O2SAT 99
== END 2021-01-24 17:35 | disposition home or self-care (01) ==
PROVIDERS: Emergency Provider Physician Assistant; PCP Pediatrics
DX: R51.9 Headache, unspecified (principal)
CPT/HCPCS: 36416; 81025; 82962; 96361; 96374; 96375; 99284; 81003; 81015; 99283; J1200; J1885; J2765

== ENCOUNTER 2021-07-02 15:07 | Outpatient (CLI) | payer MEDICAID, SELFPAY ==
--- NOTE | 2021-07-02 15:15 | RT.EKG_ITS ---
APPROVED REPORT Exam: Resting ECG Reason for Exam: HR to 150's with anxiety, rule out cardiac cause Patient Location: O HR:65 bpm ECG Measurements Heart Rate 65 AXIS NJ 139 P 62 QRSd 79 QRS 33 QT 415 T 8 QTc 431 Conclusion Sinus rhythm...normal P axis, V-rate 60- 99 Low voltage, precordial leads...precordial leads <1.0mV
== END 2021-07-02 15:08 | disposition home or self-care (01) ==
LOC: RT 15:12
PROVIDERS: PCP Nurse Practitioner Pediatrics; Visit Provider Nurse Practitioner Pediatrics
DX: R00.0 Tachycardia, unspecified (principal)
CPT/HCPCS: 93005; 93010

== ENCOUNTER 2021-07-31 11:56 | Emergency (ER) | payer MEDICAID, SELFPAY | END 2021-07-31 14:29 | LOC: ER 15:38 | PROVIDERS: PCP Nurse Practitioner Pediatrics | DX: R69 Illness, unspecified (principal) ==

== ENCOUNTER 2021-08-16 10:15 | Outpatient (CLI) | payer MEDICAID, SELFPAY ==
--- NOTE | 2021-08-16 10:15 | RT.EKG_ITS ---
APPROVED REPORT Exam: Resting ECG Reason for Exam: dizziness, palpitations, post COVID Patient Location: O HR:60 bpm ECG Measurements Heart Rate 60 AXIS GA 130 P 49 QRSd 81 QRS 32 QT 421 T 22 QTc 421 Conclusion Sinus rhythm...normal P axis, V-rate 60- 99 Normal Electrocardiogram
== END 2021-08-16 10:16 | disposition home or self-care (01) ==
LOC: RT 10:16
PROVIDERS: PCP Nurse Practitioner Pediatrics; Visit Provider Nurse Practitioner Pediatrics
DX: R42 Dizziness and giddiness (principal)
CPT/HCPCS: 93005; 93010

== ENCOUNTER 2022-01-16 15:13 | Outpatient (REF) | payer MEDICAID, SELFPAY ==
--- NOTE | 2022-01-16 14:30 | PAPFT_PTH ---
PATIENT: Tran Hannon LOC: [facility] U#:[id number] AGE/SX: 22/F ROOM: RE01/16/[address]: ANGELES Garcia : 2000 BED: DIS: 01/16/2022 SPEC #: [id number] RECD: 01/16/22 17:21 STATUS: ANAYA RESussy #: [id number] GOLDEN: 01/16/22 14:[address]: Savana Logan DEPT: [facility] Cytology RECD BY: Meg Garcia ENTERED: 01/16/22 17:21 SP TYPE: PAPFT STEFANI DR: Unknown,Unknown Tissues: 1 - CX/ENDOCX FOR PAP SMEARS Procedures: PAP THIN PREP/[facility] Screening Comments: [id number]
[2022-01-17 15:09] LABS: Chlamydia Result Negative (Negative); GC Result Negative (Negative)
== END 2022-01-16 15:14 | disposition home or self-care (01) ==
LOC: LBN 15:13
PROVIDERS: Visit Provider Nurse Practitioner Family
DX: Z11.3 Encounter for screening for infections with a predominantly sexual mode of transmission (principal); Z12.4 Encounter for screening for malignant neoplasm of cervix
CPT/HCPCS: 87491; 87591; 88142

== ENCOUNTER 2022-01-28 04:59 | Emergency (ER) | payer MEDICAID, SELFPAY ==
[2022-01-28 05:02] VITALS: BP 138/92; PULSE 77; RESP 18; TEMP 36.5; O2SAT 100
--- NOTE | 2022-01-28 05:31 | W.ED.GENAD ---
Discharge Plan Disposition Patient Disposition: HOME Condition: Stable Discharge Details Clinical Impression: Sore throat, Right ear pain Primary Care Provider: Unknown,Unknown ED Provider: Lu Troy Home Meds and New Rx's Prescriptions: New methylprednisolone [Medrol ([place])] 4 mg tablets,dose pack See Rx Instructions .ROUTE .COMPLEX Qty: 21 0RF Rx Instructions: orally ;orally per package directions PO; azithromycin [Zithromax] 500 mg tablet 500 mg PO DAILY 5 Days Qty: 5 0RF Continued epinephrine [EpiPen 2-[place]on] 0.3 mg/0.3 mL auto-injector 0.3 mg IM ONCE Qty: 2 0RF Rx Instructions: use as directed (DME) Aerochamber MV Spacer See Rx Instructions .ROUTE .MEDSUPPLY Qty: 1 0RF Rx Instructions: As directed norethindrone-e.estradiol-iron [Loestrin Fe 1.5/30 (28-Day)] 1.5 mg-30 mcg (21)/75 mg (7) tablet 1 tab PO DAILY Qty: 84 3RF albuterol sulfate [ProAir HFA] 90 mcg/actuation HFA aerosol inhaler 2 puff IH QID PRN (Reason: shortness of breath or wheezing) Qty: 8.5 2RF dexmethylphenidate [Focalin XR] 25 mg capsule,ER biphasic 50-50 25 mg PO DAILY MDD 25mg Qty: 30 0RF Rx Instructions: Take 1 cap daily Discharge Instructions Instructions: Pharyngitis (ED), Earache (ED) Additional Instructions: Your symptoms may be due to a viral infection of your throat or ear or a tonsil stone. Drink plenty of fluids and get plenty of rest. Alternate tylenol and motrin as needed and directed for pain. Be sure to gargle with warm water with 1-2 capfuls of hydrogen peroxide which may help break up any food particles which may be embedded. You are being sent home with a prescription for steroids to take as directed until finished. If you have no relief or worsening of your symptoms in the next few days, you can consider starting the antibiotic prescription. Follow-up with your scheduled appointment with your primary care doctor on Thursday. Return to the emergency department with any worsening or new concerning symptoms. Stand Alone Forms: Work Release Discharge Data Discharge Physician: Lu Troy Medical Decision Making 22-year-old female with a history of asthma and tonsillectomy presents with right-sided sore throat for the past week and right ear pain for the past 4 days. Patient appears comfortable and nontoxic. Her right TM is dull but otherwise no erythema. She has minimal posterior pharyngeal erythema but no exudates or obvious stones status post her history of tonsillectomy. There is no obvious lymphadenopathy. No drooling, trismus or submandibular swelling. Lungs clear bilaterally. Differential diagnosis includes otitis media, viral pharyngitis, potential low-lying tonsil stone that is not visible. History and presentation does not appear consistent with mono, Covid or strep pharyngitis. Rapid strep was obtained and negative. She declined a mono screen test and Covid PCR. She is advised to continue to alternate Tylenol Motrin, gargle with warm water with hydrogen peroxide. She states her main complaint is the pain. We will give 1 dose of steroids here and continue with a Medrol Dosepak. She is advised that if her symptoms do not improve or worsen, will give an antibiotic prescription to take as directed. She has a follow-up appointment with her new primary care doctor in [place] on Thursday. Usual and customary return precautions given prior to discharge. Medical Records Medical records reviewed: Yes I reviewed the patient's medical records. HPI General Mode of arrival: ambulatory. Date/Time Provider Initiated Documentation: 01/28/22 05:11. Limitations to Documentation: no limitations. Information obtained by: patient. HPI Narrative: Patient is a 22-year-old female who presents to the ED with a complaint of 1 week of right-sided sore throat and 4 days of right-sided ear pain. Patient states she has pain in the right side of her throat and ear, that is worse with swallowing. She has been taking Tylenol and ibuprofen with some relief. She does admit to pain on the right side of her neck as well. She denies any known fever, nasal congestion, cough, difficulty breathing. Patient states she has taken multiple at-home COVID test which have been negative. Related Data Home Medications Medication Instructions Recorded Confirmed inhalational spacing device #1 each 12/26/19 12/01/21 (Aerochamber MV) albuterol sulfate 90 mcg/actuation 2 puff IH QID PRN #8.5 gm 07/31/21 12/01/21 aerosol inhaler (ProAir HFA) epinephrine 0.3 mg/0.3 mL 0.3 mg (0.3 mL) IM ONCE #2 11/27/21 11/27/21 injection, auto-injector (EpiPen 2-Triston) dexmethylphenidate 25 mg 25 mg PO DAILY #30 cap MDD 25mg 12/19/21 capsule,extended release [id number] (Focalin XR) norethindrone 1.5 mg-ethinyl 1 tab PO DAILY #84 tab 01/16/22 01/16/22 estradiol 30 mcg(21)/iron 75 mg(7) tablet (Loestrin Fe 1.5/30 (28-Day)) azithromycin 500 mg tablet 500 mg PO DAILY 5 Days #5 tab 01/28/22 (Zithromax) methylprednisolone 4 mg tablets in See Rx Instructions .ROUTE 01/28/22 a dose pack (Medrol ([employer])) .COMPLEX #21 dose pk Previous Rx's Medication Instructions Recorded inhalational spacing device #1 each 12/26/19 (Aerochamber MV) albuterol sulfate 90 mcg/actuation 2 puff IH QID PRN #8.5 gm 07/31/21 aerosol inhaler (ProAir HFA) epinephrine 0.3 mg/0.3 mL 0.3 mg (0.3 mL) IM ONCE #2 11/27/21 injection, auto-injector (EpiPen 2-Triston) dexmethylphenidate 25 mg 25 mg PO DAILY #30 cap MDD 25mg 12/19/21 capsule,extended release [id number] (Focalin XR) norethindrone 1.5 mg-ethinyl 1 tab PO DAILY #84 tab 01/16/22 estradiol 30 mcg(21)/iron 75 mg(7) tablet (Loestrin Fe 1.5/30 (28-Day)) azithromycin 500 mg tablet 500 mg PO DAILY 5 Days #5 tab 01/28/22 (Zithromax) methylprednisolone 4 mg tablets in See Rx Instructions .ROUTE 01/28/22 a dose pack (Medrol ([place])) .COMPLEX #21 dose pk Allergies Allergy/AdvReac Type Severity Reaction Status Date / Time ondansetron HCl Allergy Severe Swelling/Edema, Verified 01/16/22 14:09 [From Zofran (as Hives hydrochloride)] almond Allergy Intermediate Hives Verified 01/16/22 14:09 amoxicillin Allergy Intermediate HIVES Verified 01/16/22 14:09 ondansetron [From Zofran] Allergy Intermediate Swelling/Ed Verified 01/16/22 14:09 johnathon General Stated Complaint: Sorethroat MISHEL: 4 Review of Systems All systems reviewed & are unremarkable except as noted in HPI and below Constitutional Constitutional: Reports as per HPI, Denies chills and Denies fever(s) Eyes Eyes: Denies blurry vision ENT Ears, Nose, Mouth, and Throat: Denies dizziness, Reports otalgia, Reports sore throat and Denies throat swelling Cardiovascular Cardiovascular: Denies chest pain and Denies dyspnea Respiratory Respiratory: Denies cough and Denies dyspnea Gastrointestinal Gastrointestinal: Denies abdominal pain, Denies diarrhea and Denies vomiting Genitourinary Genitourinary: Denies hematuria and Denies dysuria Musculoskeletal Musculoskeletal: Denies back pain and Denies numbness Integumentary/Breasts Skin/Breast: Denies lesions and Denies rash Neurologic Neurologic: Denies dizziness, Denies localized weakness and Denies numbness Allergic/Immunologic Allergic/Immunologic: Denies throat swelling PFSH All Active Problems (Updated 01/28/22 @ 05:32 by Lu Troy DO) Sore throat (Acute) Right ear pain (Acute) Palpitations (Acute) post COVID, seen by Cardiology, normal ECHO and EKG, plan for Holter or Zio patch Cephalgia (Acute) Plica syndrome, left knee (Acute) Anxiety disorder (Chronic 09/08/13) increased emotional lability on Zoloft excessive fatigue higher doses of prozac - not effective enough at lower doses increased irritability and wt gain and no benifit Citalopram 20mg. did not tolerate amitriptyline - daytime somulence on 10 mg @ hs. some improvement with Concerta 36 mg q d Instability of right shoulder joint (Acute 09/29/16) Mild intermittent asthma, uncomplicated (Acute 01/29/16) triggers exercise and URI Learning disability (Acute 12/04/15) IEP in place for developmental/assistive services Speech and language disorder (Acute) IEP in place Trochanteric bursitis, left hip (Acute 08/03/17) Insomnia (Chronic) ADHD (Acute) Frequent headaches (Acute) Medical History Allergy to amoxicillin [place] allergy Anxiety Asthma West's palsy 2018 Closed left arm fracture AGE 2 COVID-06 Sep 2021 Depo-Provera contraceptive status (04/14/16) is content with current contraceptive method. has not been taking vit D 3 suppliment. does get plenty of calcium in her diet upt today - neg Depot contraception (01/21/16) Left medial knee pain suspect tendonitis - will tx as same. she will fu prn Left snapping hip (08/03/17) Nexplanon insertion Surgical History Tonsillectomy 03/04 [place] teeth removed 2015, all 4.Impacted Family History Mother Diabetes Mental disorder depression Father Essential hypertension Mental disorder anxiety Other Diabetes MGF Personal history of malignant neoplasm maternal- skin, melanoma-MGM Heart disease MGF, PGF Hyperlipidemia MGM Myocardial infarction both sides Asthma paternal cousin Social History Smoking/Tobacco Use Status: Never Smoking risk assessment performed?: Yes Alcohol Intake: never Drug use: Never Substance use type: does not use Adopted: No Foster care: No Household members: family Housing: house current occupation: Works at after school program at [employer] Pets and animals: Yes Pets and animals: cat(s) and dog(s) Sexually active: Yes (Has been before but not recently) Current gender identity: female Seatbelt use: always Helmet use: Yes Helmet use: always Working smoke detector in home: Yes Fire extinguisher in home: Yes Carbon monox detector in home: Yes Firearms in home: Yes Firearms unloaded and locked: Yes Do you feel safe at home: Yes Do you feel safe in your relationship?: Yes Female Reproductive History Menstrual control method: implanted (nexplanon lot#[id number] exp 03/2025) Exam Const General: cooperative, healthy appearing and no acute distress Orientation: alert, awake and oriented x3 HENMT Head: normal to inspection Ears: hearing grossly normal bilaterally, external ears normal and TM abnormal dull on the right General nose exam: external nose normal Face and sinus: normal facial exam and no sinus tenderness Mouth: oral mucosae normal Throat: posterior oropharynx normal, uvula midline, no peritonsillar masses and posterior oropharynx abnormal erythema (Minimal bilateral); Negative for no edema, no exudates and no foreign body Eyes General: appearance normal, both eyes and all related structures Neck Neck: normal visual inspection, no lymphadenopathy, no meningeal signs, trachea midline, supple, no anterior neck swelling and No submandibular swelling Resp Effort & Inspection: normal respiratory effort and able to speak in complete sentences Auscultation: clear to auscultation bilaterally Cardio Rate: regular rate Rhythm: regular rhythm Skin General skin exam: no rashes or lesions noted Neuro General: patient alert, patient awake, patient oriented x3, moves all extremities and no meningeal signs Motor: muscle tone normal throughout Extrem General: normal to inspection and full ROM Psych Appearance: grossly normal Affect: normal affect Course Vital Signs Vital signs: Vital Signs Temperature 97.7 F 01/28/22 05:02 Pulse 77 01/28/22 05:02 Respiratory Rate 18 01/28/22 05:02 Blood Pressure 138/92 H 01/28/22 05:02 Pulse Oximetry 100 01/28/22 05:02 Temperature 97.7 F 01/28/22 05:02 Temperature Source Tympanic 01/28/22 05:02 Pulse 77 01/28/22 05:02 Respiratory Rate 18 01/28/22 05:02 Respiratory Effort 01/28/22 05:05 Blood Pressure 138/92 H 01/28/22 05:02 Blood Pressure Position Supine 01/28/22 05:02 Pulse Oximetry 100 01/28/22 05:02 Oxygen Delivery Method Room Air 01/28/22 05:02 Oxygen Flow Rate 0 01/28/22 05:02 Pain Level 8 01/28/22 05:02
[2022-01-28] MEDS: predniSONE 10 MG TAB 30 MG PO (05:34)
== END 2022-01-28 05:48 | disposition home or self-care (01) ==
PROVIDERS: Emergency Provider Physician Assistant
DX: J02.9 Acute pharyngitis, unspecified (principal); H92.01 Otalgia, right ear
CPT/HCPCS: 81025; 87880; 99283; 87081; J7512

== ENCOUNTER → 2022-03-14 00:17 | Outpatient (CLI) | payer MEDICAID, SELFPAY ==
--- NOTE | 2022-03-14 07:00 | DI.US_ITS ---
Exam(s) US PELVIS TRANSVAGINAL EXAM: US PELVIS TRANSVAGINAL CLINICAL HISTORY: dysmenorrhea, and dyspareunia, N94.6 TECHNIQUE: Transabdominal and transvaginal imaging was performed using standard protocol. COMPARISON: No exams were available for comparison FINDINGS: KIDNEYS: Kidneys are symmetric in size. No evidence of renal calculi. No evidence of hydronephrosis. No renal mass or cyst identified. UTERUS: Anteverted. 4.2 x 2.1 x 3.7 cm. Endometrium: 1 millimeter. Myometrium: Unremarkable. Cervix: Unremarkable. OVARIES: Right: Cyst or mass: None. Left: Cyst or mass: None. DOPPLER: Color: Symmetric and uniform flow to both ovaries. No hyperemia. Duplex: Normal ovarian arterial waveforms visualized. CUL-DE-SAC: Free fluid: None. IMPRESSION: 1. Normal-appearing uterus with endometrial stripe within normal limits. 2. Unremarkable bilateral ovaries. DATA REPOSITORY:
== END ==
PROVIDERS: Visit Provider Nurse Practitioner Family
DX: N94.4 Primary dysmenorrhea (principal); N94.19 Other specified dyspareunia
CPT/HCPCS: 76830; 76856

== ENCOUNTER 2022-05-01 17:04 | Outpatient (REF) | payer MEDICAID, SELFPAY ==
[2022-05-03 14:56] LABS: COVID-19 RT-PCR UVMMC Result Negative (Negative)
== END 2022-05-01 17:05 | disposition home or self-care (01) ==
LOC: LBN 17:04
PROVIDERS: Visit Provider Physician Assistant Medical
DX: J34.89 Other specified disorders of nose and nasal sinuses (principal); Z20.822 Contact with and (suspected) exposure to COVID-19
CPT/HCPCS: U0003

== ENCOUNTER 2022-05-16 16:30 | Outpatient (REF) | payer MEDICAID, SELFPAY ==
[2022-05-19 10:38] LABS: Hepatitis C Ab w Rflx HCV PCR Negative (Negative)
[2022-05-19 11:01] LABS: HIV-1/2 Ag & Ab Screen Negative (Negative)
== END 2022-05-16 16:31 | disposition home or self-care (01) ==
LOC: NCHCN 16:30
PROVIDERS: Visit Provider Nurse Practitioner Family
DX: Z11.4 Encounter for screening for human immunodeficiency virus [HIV] (principal); Z11.59 Encounter for screening for other viral diseases; Z00.00 Encounter for general adult medical examination without abnormal findings
CPT/HCPCS: 86803; 87389

== ENCOUNTER 2023-07-23 21:21 | Outpatient (REF) | payer MEDICAID, SELFPAY ==
[2023-07-23 21:47] LABS: Abs Immature Grans 0.02 10^3/uL (0.0-0.06); Absolute Basophil Count 0.04 10^3/uL (0.0-0.2); Absolute Eosinophil Count 0.12 10^3/uL (0.0-0.7); Absolute Lymphocyte Count 3.38 10^3/uL (1.2-3.4); Absolute Monocyte Count 0.62 10^3/uL (0.1-0.8); Absolute Neutrophil Count 6.49 10^3/uL (1.2-6.7); Basophils % 0.4; Eosinophils % 1.1; HGB 13.2 g/dL (11.2-15.7); Immature Grans % 0.2; Lymphocytes % 31.7; MCH 31.2 pg (27.0-33.0); MCHC 33.8 % (32.0-36.0); MCV 92 fL (80-95); MPV 9.8 fL (8.0-11.0); Monocytes % 5.8; Neutrophils % 60.8; Platelet Count 303 10^3/uL (130-400); RBC 4.23 10^6/uL (3.93-5.22); RDW 11.2 % (11.7-14.6); RDW-SD 38.3 fL; WBC 10.67 10^3/uL (4.4-10.8)
[2023-07-23 22:13] LABS: ALT 27 U/L (14-59); AST 21 U/L (15-37); Albumin 4.2 g/dL (3.4-5.0); Alkaline Phosphatase 64 U/L (46-116); Anion Gap 6.1 mmol/L (3-11); BUN 16 mg/dL (7-18); Bilirubin, Total 0.3 mg/dL (0.2-1.0); CO2 29.9 mmol/L (21.0-32.0); CREATININE 0.7 mg/dL (0.55-1.02); Chloride 101 mmol/L (98-107); Estimated GFR 124.55 (mL/min/1.73m2); Glucose 96 mg/dL (74-106); Potassium 3.5 mmol/L (3.5-5.1); Sodium 137 mmol/L (136-145); TSH (W/Ref FT4) 1.05 uIU/mL (0.36-3.74); Total Protein 7.9 g/dL (6.4-8.2)
== END 2023-07-23 21:22 | disposition home or self-care (01) ==
LOC: NCHCN 21:21
PROVIDERS: Visit Provider Family Medicine
DX: R42 Dizziness and giddiness (principal); R35.89 Other polyuria
CPT/HCPCS: 80053; 84443; 85025

== ENCOUNTER 2023-08-06 21:26 | Outpatient (REF) | payer MEDICAID, SELFPAY ==
[2023-08-06 21:49] LABS: Iron 51 ug/dL (50-170); Total Iron Binding Capacity 276 ug/dL (250-450); Transferrin Sat 18 % (15-50)
[2023-08-06 22:12] LABS: Vitamin D 25 Total 30.4 ng/mL (30-100)
[2023-08-06 22:17] LABS: Ferritin 69 ng/mL (8-252); Vitamin B12 336 pg/mL (193-986)
[2023-08-06 23:15] LABS: C-Reactive Protein 0.26 mg/dL (0.0-0.3)
[2023-08-21 10:10] LABS: IgA 149 mg/dL (85-499); Interpretation (See Note); Tissue Transglutaminase IgA <1.2 U/mL (<4.0)
== END 2023-08-06 21:27 | disposition home or self-care (01) ==
LOC: NCHCN 21:26
PROVIDERS: Visit Provider Family Medicine
DX: R11.0 Nausea (principal); R10.9 Unspecified abdominal pain; R42 Dizziness and giddiness
CPT/HCPCS: 82306; 82784; 83516; 82607; 82728; 83540; 83550; 86140

== ENCOUNTER 2024-03-16 15:22 | Outpatient (REF) | payer MEDICAID, SELFPAY ==
[2024-03-16 15:51] LABS: TSH (W/Ref FT4) 1.81 uIU/mL (0.36-3.74)
[2024-03-17 10:59] LABS: HBs Antibody, Quant 7.3 mIU/mL (See Note); Hepatitis B Surface Ab Negative (See Note)
[2024-03-17 11:13] LABS: Hepatitis B Surface Ag Negative (Negative)
[2024-03-17 11:45] LABS: Hepatitis C Ab w Rflx HCV PCR Negative (Negative)
[2024-03-17 11:56] LABS: HIV-1/2 Ag & Ab Screen Negative (Negative)
== END 2024-03-16 15:23 | disposition home or self-care (01) ==
LOC: NCHCN 15:22
PROVIDERS: Visit Provider Nurse Practitioner Family
DX: F41.8 Other specified anxiety disorders (principal); Z77.21 Contact with and (suspected) exposure to potentially hazardous body fluids; Z11.4 Encounter for screening for human immunodeficiency virus [HIV]; Z11.59 Encounter for screening for other viral diseases; Z01.84 Encounter for antibody response examination
CPT/HCPCS: 86706; 86803; 87340; 87389; 84443

== ENCOUNTER 2024-06-09 15:06 | Outpatient (REF) | payer SELFPAY ==
[2024-06-09 15:09] LABS: Bilirubin Negative (Negative); Blood Negative (Negative); Clarity Clear (Clear); Glucose Negative (Negative); Ketones Negative (Negative); Leukocyte Esterase Negative (Negative); Nitrite Negative (Negative); Specific Gravity <= 1.005 (1.005-1.025); Urobilinogen 0.2 mg/dL (Up to 0.2)
== END 2024-06-09 15:07 | disposition home or self-care (01) ==
LOC: NCHCN 15:06
PROVIDERS: PCP Nurse Practitioner Family; Visit Provider Nurse Practitioner Family
DX: R35.89 Other polyuria (principal)
CPT/HCPCS: 81003

== ENCOUNTER 2025-07-05 09:39 | Emergency (ER) | payer MEDICAID, SELFPAY ==
[2025-07-05 09:43] VITALS: BP 97/65; PULSE 61; RESP 16; TEMP 36.6; O2SAT 98
--- NOTE | 2025-07-05 10:44 | ED.GENADUL_ITS ---
Discharge Plan Disposition Patient Disposition: Home Condition: Good Discharge Details Clinical Impression: Laceration of right index finger Primary Care Provider: Vesna Eldridge ED Provider: Sammy Foley Home Meds and New Rx's Prescriptions: No Action epinephrine [EpiPen 2-Triston] 0.3 mg/0.3 mL auto-injector 0.3 mg IM ONCE Qty: 2 0RF Rx Instructions: use as directed (DME) Aerochamber MV Spacer See Rx Instructions .ROUTE .MEDSUPPLY Qty: 1 0RF Rx Instructions: As directed norethindrone-e.estradiol-iron [Loestrin Fe 1.5/30 (28-Day)] 1.5 mg-30 mcg (21)/75 mg (7) tablet 1 tab PO DAILY Qty: 84 3RF albuterol sulfate [ProAir HFA] 90 mcg/actuation HFA aerosol inhaler 2 puff IH QID PRN (Reason: shortness of breath or wheezing) Qty: 8.5 2RF dexmethylphenidate [Focalin XR] 25 mg capsule,ER biphasic 50-50 25 mg PO DAILY MDD 25mg Qty: 30 0RF Rx Instructions: Take 1 cap daily sertraline 100 mg tablet 100 mg PO DAILY Patient Comments: TAKE ONE AND ONE-HALF TABLETS BY MOUTH EVERY DAY; pt states only taking 100 mg daily 07/05/25 Discharge Instructions Instructions: Laceration Repair With Glue ED Additional Instructions: At this time you have a mild laceration. Please keep the brace on at all times during the healing process to help prevent any additional stress or strain to the healing laceration. Please keep the area clean and dry. Monitor closely for any redness, drainage or discharge. Glue will come off on its own in 7 to 10 days. For long-term scar cosmesis, please make sure to avoid any sun to the area for the next year. Apply moisturizer or vitamin E to the area twice daily for the next 12 months for the best chance of wound/scar medication. Please take a daily multivitamin as well as this can help in wound healing. If you notice any worsening of your symptoms, or any new symptoms such as vomiting, diarrhea, fever, chills, shortness of breath, chest pain, numbness, weakness, or fainting , please return immediately to the emergency department for reevaluation. Please follow up with your primary care provider as soon as possible for reassessment and reevaluation. As always, it was a pleasure participating in your medical care today. Referrals: Vesna Eldridge [Primary Care Provider, Medicine] HPI General Date/Time Provider Initiated Documentation: 07/05/25 10:00 . HPI Narrative: 25-year-old female whose tetanus was updated in 2020 who is right-hand dominant who presents today for evaluation of laceration to her right hand. On her index finger. She was working with a ceramic wax warmer, and trying to clean it out when a crack on it sliced her finger. She had bleeding, washed out and then came to the ER. She admits to mild throbbing pain. She denies any new numbness or tingling. No difficulty with movement. No other complaints at this time. Related Data Home Medications ?Medication ?Instructions ?Recorded ?Confirmed inhalational spacing device #1 ea 12/26/19 07/05/25 (Aerochamber MV spacer) albuterol sulfate 90 mcg/actuation 2 puff inhalation Q ID PRN 07/31/21 07/05/25 aerosol inhaler (ProAir HFA) shortness of breath or wh eezing #8.5 grams epinephrine 0.3 mg/0.3 mL 0.3 mg (0.3 mL) IM ONCE ##2 11/27/21 07/05/25 injection, auto-injector (EpiPen 2-Triston) dexmethylphenidate 25 mg 25 mg PO DAILY #30 caps 03/0 01/0707/05/25 capsule,extended release [id number] (Focalin XR) norethindrone 1.5 mg-ethinyl 1 tab PO DAILY #84 tabs 0 01/16/22 07/05/25 estradiol 30 mcg(21)/iron 75 mg(7) tablet (Loestrin Fe 1.5/30 (28-Day)) sertraline 100 mg tablet 100 mg PO DAILY 07/05/25 Previous Rx's ?Medication ?Instructions ?Recorded inhalational spacing device #1 ea 12/26/19 (Aerochamber MV spacer) albuterol sulfate 90 mcg/actuation 2 puff inhalation Q ID PRN 07/31/21 aerosol inhaler (ProAir HFA) shortness of breath or wh eezing #8.5 grams epinephrine 0.3 mg/0.3 mL 0.3 mg (0.3 mL) IM ONCE ##2 11/27/21 injection, auto-injector (EpiPen 2-Triston) dexmethylphenidate 25 mg 25 mg PO DAILY #30 caps 03/01/07 capsule,extended release [id number] (Focalin XR) norethindrone 1.5 mg-ethinyl 1 tab PO DAILY #84 tabs 0 01/16/22 estradiol 30 mcg(21)/iron 75 mg(7) tablet (Loestrin Fe 1.5/30 (28-Day)) Allergies Allergy/AdvReac Type Severity Reaction Status Date / Time ondansetron HCl (From Zofran Allergy Severe Swelling/Edema, Verified 07/05/25 09:47 (as hydrochloride)) Hives almond Allergy Intermediate Hives Verified 07/05/25 09:47 amoxicillin Allergy Intermediate HIVES Verified 07/05/25 09:47 ondansetron (From Zofran) Allergy Intermediate Swelling/Ed Verified 07/05/25 09:47 johnathon General Stated Complaint: Laceration MISHEL: 4 Exam Narrative Exam Narrative: 1.Const: Well-nourished, Well-developed, appearing stated age 2.Eyes: PERRL, no conjunctival injection, and symmetrical lids. 3.ENT: Atraumatic external nose and ears. Moist MM. Neck: Symmetric, trachea midline, No thyromegaly. 4.CVS: +S1/S2, Peripheral pulses 2+ and equal in all extremities. Brisk capillary refill in all extremities. 5.RESP: Unlabored respiratory effort. Clear to auscultation bilaterally. No wheezes rales or rhonchi 6.GI: Soft, Nontender/Nondistended, No hepatosplenomegaly. No guarding or rebound. 7.MSK: Normocephalic/Atraumatic, Extremities w/o deformity or ttp No cyanosis or clubbing, Normal movement of all extremities. Patient's index finger demonstrates normal flexion and extension, normal medial and lateral strength as well. Normal sensation distally. Brisk capillary refill. 8.Skin: On the lateral aspect of her right index finger the patient has a 4 cm notably superficial laceration with no deep bony or ligamentous or tendinous involvement. Minimal active oozing. No hemorrhage. 9.Neuro: access rn II-XII grossly intact. Sensation grossly intact, no focal neurologic deficits. 10.Psych: (AAO) x3. Appropriate mood and affect Course Vital Signs Vital signs: Vital Signs Temperature 36.6 C 07/05/25 09:43 Pulse 61 07/05/25 09:43 Respiratory Rate 16 07/05/25 09:43 Blood Pressure 97/65 L 07/05/25 09:43 Pulse Oximetry 98 07/05/25 09:43 Temperature 36.6 C 07/05/25 09:43 Temperature Source Oral 07/05/25 09:43 Pulse 61 07/05/25 09:43 Respiratory Rate 16 07/05/25 09:43 Blood Pressure 97/65 L 07/05/25 09:43 Blood Pressure Position Sitting 07/05/25 09:43 Pulse Oximetry 98 07/05/25 09:43 Oxygen Delivery Method Room Air 07/05/25 09:43 Oxygen Flow Rate 0 07/05/25 09:43 Pain Level 9 07/05/25 09:43 Procedure Laceration Laceration 1: Date of Procedure: 07/05/25 Time of procedure: 10:46 Provider that performed the procedure: Sammy Foley Standard Time Out Performed: No Patient Consented: Verbally Site: hand (Index finger) Side (If applicable): right Description: linear (4 cm) Depth: simple, single layer Pre-repair:: wound explored, irrigated extensively and deep structures intact Skin layer closed with: other (Dermabond) Medical Decision Making 25-year-old female whose tetanus was updated in 2020 who is right-hand dominant who presents today for evaluation of laceration to her right hand. On her index finger. She was working with a ceramic wax warmer, and trying to clean it out when a crack on it sliced her finger. She had bleeding, washed out and then came to the ER. She admits to mild throbbing pain. She denies any new numbness or tingling. No difficulty with movement. No other complaints at this time. Exam demonstrates a notably superficial 4 cm laceration on the lateral aspect of the right index finger. She shows no evidence of tendon or neurovascular compromise. Normal sensation normal movement normal strength. Brisk capillary refill. The area was cleaned, Dermabond was appropriate secondary to the superficial nature of the cut. It was applied, and she tolerated this well. Patient was put in a splint to prevent any tension on that area. Tetanus is up-to-date. Patient will be discharged home. Discussed red flags were to return. I have extensively reviewed the treatment plan and discharge instructions with the patient. I have addressed all patient concerns at this time. The patient was made aware of what symptoms to monitor for that would warrant a return to the emergency department. Discussed the plan with the patient, they demonstrate verbal understanding and agreement with our assessment and plan at this time. The documentation in this chart was dictated using [employer] dictation software. Please excuse any dictation errors. PFSH All Active Problems (Updated 07/05/25 @ 10:49 by Sammy Foley DO) Laceration of right index finger (Acute) Dysmenorrhea (Chronic) primary. Sx better with 6yrs DepoProvera. No improvement with extended cycle OCPs Palpitations (Acute) post COVID, seen by Cardiology, normal ECHO and EKG, plan for Holter or Zio patch Cephalgia (Acute) Plica syndrome, left knee (Acute) Anxiety disorder (Chronic 09/08/13) increased emotional lability on Zoloft excessive fatigue higher doses of prozac - not effective enough at lower doses increased irritability and wt gain and no benifit Citalopram 20mg. did not tolerate amitriptyline - daytime somulence on 10 mg @ hs. some improvement with Concerta 36 mg q d Instability of right shoulder joint (Acute 09/29/16) Mild intermittent asthma, uncomplicated (Acute 01/29/16) triggers exercise and URI Learning disability (Acute 12/04/15) IEP in place for developmental/assistive services Speech and language disorder (Acute) IEP in place Trochanteric bursitis, left hip (Acute 08/03/17) Insomnia (Chronic) ADHD (Acute) Frequent headaches (Acute) Medical History Allergy to amoxicillin [place] allergy Anxiety Asthma West's palsy 2018 Closed left arm fracture AGE 2 COVID-06 Sep 2021 Depo-Provera contraceptive status (04/14/16) is content with current contraceptive method. has not been taking vit D 3 suppliment. does get plenty of calcium in her diet upt today - neg Depot contraception (01/21/16) Left medial knee pain suspect tendonitis - will tx as same. she will fu prn Left snapping hip (08/03/17) Nexplanon insertion Surgical History Tonsillectomy 03/04 [place] teeth removed 2015, all 4.Impacted Family History Mother Diabetes Mental disorder depression Father Essential hypertension Mental disorder anxiety Other Diabetes MGF Personal history of malignant neoplasm maternal- skin, melanoma-MGM Heart disease MGF, PGF Hyperlipidemia MGM Myocardial infarction both sides Asthma paternal cousin Social History Smoking/Tobacco Use Status: Never Smoking risk assessment performed?: Yes Alcohol Intake: never Drug use: Never Substance use type: does not use Adopted: No Foster care: No Household members: family Housing: house 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
== END 2025-07-05 10:28 | disposition home or self-care (01) ==
PROVIDERS: Emergency Provider Student in an Organized Health Care Education/Training Program; PCP Nurse Practitioner Family
DX: S61.210A Laceration without foreign body of right index finger without damage to nail, initial encounter (principal); W25.XXXA Contact with sharp glass, initial encounter
CPT/HCPCS: 12002